=== PATIENT | male | born 1995 | race Caucasian/White ===

== ENCOUNTER 2019-07-31 09:57 | Emergency (ER) | payer BC ==
--- NOTE | 2019-07-31 10:17 | EDM.PDOC ---
ED HPI GENERAL MEDICAL PROBLEM - General Chief Complaint: Lower Extremity Injury/Pain Stated Complaint: LT ANKLE ISSUE Time Seen by Provider: 07/31/19 10:14 Source of Information: Reports: Patient History Limitations: Reports: No Limitations - History of Present Illness INITIAL COMMENTS - FREE TEXT/NARRATIVE: HISTORY AND PHYSICAL: History of present illness: Patient is a 23-year-old male presents to the ED with complaint of left ankle injury. He states he rolled his ankle inwards and fell landing on it about 45 minutes prior to arrival to the ED. He has been able to walk on it. He denies proximal pain or distal numbness/tingling. Review of systems: As per history of present illness and below otherwise all systems reviewed and negative. Past medical history: As per history of present illness and as reviewed below otherwise noncontributory. Surgical history: As per history of present illness and as reviewed below otherwise noncontributory. Social history: No reported history of drug or alcohol abuse. Family history: As per history of present illness and as reviewed below otherwise noncontributory. Physical exam: General: Patient sitting comfortably in no acute distress and nontoxic appearing HEENT: Atraumatic, normocephalic, pupils reactive, negative for conjunctival pallor or scleral icterus, mucous membranes moist, throat clear, neck supple, nontender, trachea midline. No meningeal signs. Lungs: Clear to auscultation, breath sounds equal bilaterally, chest nontender. Heart: S1S2, regular, negative for clicks, rubs, or overt murmur. Abdomen: Soft, nondistended, nontender. Negative for masses or hepatosplenomegaly. Negative for costovertebral tenderness. No rigidity, rebound , guarding. Pelvis: Stable nontender. Genitourinary: Deferred. Rectal: Deferred. Extremities: No obvious swelling or deformity. Skin is intact. Pain to palpation posterior to the medial malleolus. Negative tib/fib squeeze and no proximal pain to palpation. negative for cords or calf pain. Neurovascular unremarkable. Neuro: Awake, alert, oriented. Cranial nerves II through XII unremarkable. Cerebellum unremarkable. Motor and sensory unremarkable throughout. Exam nonfocal. Notes: Diagnostics: Left ankle x-ray Therapeutics: CAM boot Prescriptions: Impression: Left ankle injury Plan: 1. Ice, elevate, and motrin or tylenol as needed 2. Follow up with orthopedics, please call the number provided to schedule an appointment 3. Return to ED as needed as discussed Definitive disposition and diagnosis as appropriate pending reevaluation and review of above. Left Ankle Pain Score (Numeric/FACES): 5 - Related Data Allergies Allergy/AdvReac Type Severity Reaction Status Date / Time No Known Allergies Allergy Verified 07/31/19 10:05 Home Meds: Home Meds . [No Known Home Meds] 07/31/19 [History] Past Medical History - Past Health History Medical/Surgical History: Denies Medical/Surgical History - Infectious Disease History Infectious Disease History: Reports: Chicken Pox Social & Family History - Family History Family Medical History: Noncontributory - Tobacco Use Years of Tobacco use: 10 Packs/Tins Daily: 0.5 - Caffeine Use Caffeine Use: Reports: Soda - Recreational Drug Use Recreational Drug Use: No Review of Systems - Review of Systems Review Of Systems: ROS reveals no pertinent complaints other than HPI. ED EXAM, GENERAL - Physical Exam Exam: See Below (see dictation) Course - Vital Signs Last Recorded V/S: Last Vital Signs Temp 96.9 F 07/31/19 10:05 Pulse 79 07/31/19 10:05 Resp 17 07/31/19 10:05 BP 139/82 07/31/19 10:05 Pulse Ox 98 07/31/19 10:05 Departure - Departure Time of Disposition: 11:21 Disposition: Home, Self-Care 01 Condition: Good Clinical Impression: Left ankle injury - Discharge Information Referrals: PCP,Not In Area [Primary Care Provider] - Forms: ED Department Discharge Additional Instructions: The following information is given to patients seen in the emergency department who are being discharged to home. This information is to outline your options for follow-up care. We provide all patients seen in our emergency department with a follow-up referral. The need for follow-up, as well as the timing and circumstances, are variable depending upon the specifics of your emergency department visit. If you don't have a primary care physician on staff, we will provide you with a referral. We always advise you to contact your personal physician following an emergency department visit to inform them of the circumstance of the visit and for follow-up with them and/or the need for any referrals to a consulting specialist. The emergency department will also refer you to a specialist when appropriate. This referral assures that you have the opportunity for follow-up care with a specialist. All of these measure are taken in an effort to provide you with optimal care, which includes your follow-up. Under all circumstances we always encourage you to contact your private physician who remains a resource for coordinating your care. When calling for follow-up care, please make the office aware that this follow-up is from your recent emergency room visit. If for any reason you are refused follow-up, please contact the [facility] Emergency Department at and asked to speak to the emergency department charge nurse. [facility] Specialty Care - Orthopedic Clinic Professional [address], [address] [place] [address] 1. Ice, elevate, and motrin or tylenol as needed 2. Follow up with orthopedics, please call the number provided to schedule an appointment 3. Return to ED as needed as discussed
--- NOTE | 2019-07-31 11:03 | CR ---
INDICATION: Pain. Three views of the left ankle. There is normal alignment. There soft tissue swelling. Talar dome is intact. No acute fracture seen. Dictated by Nereida Angela MD @ Jul 31 2019 11:02AM Signed by Dr. Nereida Angela @ Jul 31 2019 11:02AM
== END 2019-07-31 11:33 | disposition home or self-care (01) ==
LOC: MW.ED 09:57
DX: S99.912A Unspecified injury of left ankle, initial encounter (principal); F17.210 Nicotine dependence, cigarettes, uncomplicated; W01.0XXA Fall on same level from slipping, tripping and stumbling without subsequent striking against object, initial encounter
CPT/HCPCS: 73610-26-LT; 73610-LT; 99283-25